=== PATIENT | female | born 1950 | race Two or more races ===

== ENCOUNTER 2021-11-02 12:29 | Inpatient (IN) | payer MEDICAID, OTHER ==
[~2021-11-02] VITALS: Ht 160 cm; Wt 62.1 kg
[2021-11-02 01:30] VITALS: BP 120/70
[2021-11-02 16:10] LABS: Hematocrit 26.1 % (36.0-46.0); Lymphocytes # (auto) 0.8 10 ^3/uL (0.4-5.4)
[2021-11-02 16:11] LABS: Basophils # (auto) 0.3 10 ^3/uL (0-0.2); Basophils % (auto) 2.1 % (0.0-2.0); Eosinophils # (auto) 0.2 10 ^3/uL (0-0.8); Eosinophils % (auto) 1.5 % (0.0-7.0); Hemoglobin 7.8 g/dL (12.2-16.2); Lymphocytes % (auto) 6.8 % (10.0-50.0); Mean Corpuscular Hemoglobin 24.2 pg (28.0-32.0); Mean Corpuscular Hgb Conc. 29.7 g/dL (32.0-36.0); Mean Corpuscular Volume 81.6 fL (80.0-100.0); Monocytes # (auto) 0.4 10 ^3/uL (0-1.3); Monocytes % (auto) 3.4 % (0.0-12.0); Neutrophils # (auto) 10.4 10 ^3/uL (1.6-8.6); Neutrophils % (auto) 86.2 % (37.0-80.0); Nucleated Red Blood Cells % 0.3 %
[2021-11-02 16:15] LABS: Red Cell Distribution Width 21.8 % (11.8-14.3)
[2021-11-02 16:24] LABS: Albumin 3.4 g/dL (3.4-5.0); Anion Gap 6 (5-15); BUN/Creatinine Ratio 12.2; Blood Urea Nitrogen 9 mg/dL (7-18); Calcium 8.3 mg/dL (8.5-10.1); Carbon Dioxide 21 mmol/L (21-32); Chloride 115 mmol/L (98-107); GFR African American 99 mL/min; GFR Non-African American 82 mL/min; Glucose 111 mg/dL (74-106); Potassium 4.2 mmol/L (3.5-5.1); Sodium 142 mmol/L (136-145)
[2021-11-02 16:27] LABS: Alanine Aminotransferase 21 U/L (13-56); Alkaline Phosphatase 95 U/L (45-117); Aspartate Aminotransferase 35 U/L (15-37); Bilirubin, Total 0.3 mg/dL (0.2-1.0); Total Protein 7.2 g/dL (6.4-8.2)
[2021-11-02] MEDS ORDERED: ONDANSETRON HCL 4 MG/2 ML VIAL IV ONE (16:30)
[2021-11-02] MEDS ORDERED: MORPHINE SULFATE INJECTION 2 MG/ML SYRG IV ONE (16:30)
[2021-11-02] MEDS ORDERED: LACTATED RINGER'S 1,000 ML IV ONE (19:00)
[2021-11-02] MEDS ORDERED: NITROGLYCERIN 0.4 MG SL TAB SL PRN (19:00)
[2021-11-02] MEDS ORDERED: MORPHINE SULFATE INJECTION 2 MG/ML SYRG IV PRN (19:00)
[2021-11-02] MEDS: MORPHINE SULFATE 4 MG/ML SYR/VIAL IV PRN (20:32)
[2021-11-02] MEDS: ONDANSETRON HCL 4 MG/2 ML VIAL IV PRN (20:33)
[2021-11-02] MEDS ORDERED: PANTOPRAZOLE 40 MG/10 ML VIAL INJ IV ONE (23:45)
[2021-11-02] MEDS ORDERED: metroNIDAZOLE 500MG/100ML 100 ML IV ONE (23:45)
[2021-11-02] MEDS ORDERED: SODIUM CHLORIDE 0.9% 1,000 ML IV SCH (23:45)
[2021-11-02] MEDS ORDERED: cefTRIAXone 1GM/50ML D5W 50 ML IV ONE (23:45)
[2021-11-03] VITALS (10 sets, daily range): BP systolic 120–159; BP diastolic 60–98
[2021-11-03] MEDS ORDERED: MORPHINE SULFATE INJECTION 2 MG/ML SYRG IV PRN ×2
[2021-11-03] MEDS ORDERED: LORazepam 0.5 MG TAB PO PRN
[2021-11-03] MEDS ORDERED: ALUM & MAG HYDROX-SIMETH LIQ(MAALOX) 30 ML PO PRN
[2021-11-03] MEDS ORDERED: DOCUSATE SOD 100 MG CAP PO PRN
[2021-11-03] MEDS ORDERED: NITROGLYCERIN 0.4 MG SL TAB SL PRN
[2021-11-03] MEDS: MORPHINE SULFATE 4 MG/ML SYR/VIAL IV PRN ×2 (01:00→11:27)
[2021-11-03] MEDS: D5W/SOD CHLO 0.9% 1,000 ML IV SCH (02:14)
[2021-11-03 04:24] LABS: % Iron Saturation 6.6 % (15-50)
[2021-11-03 04:56] LABS: Urine Bacteria FEW /hpf (None Seen); Urine Blood TRACE /uL (Negative); Urine Mucus FEW (None Seen); Urine Specific Gravity 1.019 (1.001-1.035); Urine WBC 103 /hpf (0 - 5)
[2021-11-03 04:57] LABS: Urine Hyaline Cast FEW /lpf (0 - 2)
[2021-11-03 05:04] LABS: Amphetamine Screen, Urine NEGATIVE (NEGATIVE); Barbiturate Scree,Urine NEGATIVE (NEGATIVE); Benzodiazephine Screen, Urine NEGATIVE (NEGATIVE); Cannabinoid Screen, Urine NEGATIVE (NEGATIVE); Opiate Scree,Urine POSITIVE (NEGATIVE)
[2021-11-03 05:12] LABS: Cocaine Screen, Urine NEGATIVE (NEGATIVE); Phencyclidine Screen, Urine NEGATIVE (NEGATIVE)
[2021-11-03] MEDS ORDERED: metroNIDAZOLE 500MG/100ML 100 ML IV SCH (06:00)
[2021-11-03 07:07] LABS: Basophils # (auto) 0.1 10 ^3/uL (0-0.2); Eosinophils # (auto) 0.3 10 ^3/uL (0-0.8); Monocytes # (auto) 0.7 10 ^3/uL (0-1.3); Monocytes % (auto) 6.6 % (0.0-12.0); Neutrophils # (auto) 7.9 10 ^3/uL (1.6-8.6); White Blood Cell 10.1 10^3/uL (4.4-10.8)
[2021-11-03 07:10] LABS: Basophils % (auto) 1.3 % (0.0-2.0); Eosinophils % (auto) 2.9 % (0.0-7.0); Hematocrit 23.7 % (36.0-46.0); Hemoglobin 7.4 g/dL (12.2-16.2); Lymphocytes # (auto) 1.2 10 ^3/uL (0.4-5.4); Lymphocytes % (auto) 11.6 % (10.0-50.0); Mean Corpuscular Hemoglobin 25.6 pg (28.0-32.0); Mean Corpuscular Hgb Conc. 31.4 g/dL (32.0-36.0); Mean Corpuscular Volume 81.7 fL (80.0-100.0); Neutrophils % (auto) 77.6 % (37.0-80.0); Nucleated Red Blood Cells % 0.1 %; Red Cell Distribution Width 20.9 % (11.8-14.3)
[2021-11-03 07:23] LABS: Albumin 3.2 g/dL (3.4-5.0); Magnesium 3.2 mg/dL (1.6-2.6); Potassium 3.2 mmol/L (3.5-5.1)
[2021-11-03 07:46] LABS: INR 1.04 (0.9-1.15); Partial Thromboplastin Time 27.6 sec (23.6-33.0)
[2021-11-03 08:11] LABS: BUN/Creatinine Ratio 11.4; Bilirubin, Total 0.2 mg/dL (0.2-1.0); Phosphorus 2.7 mg/dL (2.5-4.90); Uric Acid 2.5 mg/dL (2.6-6.0)
[2021-11-03] MEDS: cefTRIAXone 1GM/50ML D5W 50 ML IV SCH (08:19)
[2021-11-03] MEDS: HYDROcodone-ACET 5/325MG TAB PO PRN ×2 (08:19→20:35)
[2021-11-03] MEDS ORDERED: PANTOPRAZOLE 40 MG/10 ML VIAL INJ IV SCH (10:00)
[2021-11-03] MEDS: NICOTINE 21MG/24 HR TOPICAL PATCH TD SCH (12:10)
[2021-11-03] MEDS ORDERED: GASTROGRAFIN 120 ML SOL ONE (12:40)
[2021-11-03] MEDS ORDERED: LIDOCAINE VISCOUS 2% 15ML UD ONE (14:57)
[2021-11-03] MEDS ORDERED: MIDAZOLAM HCL 5 MG/ML-1ML VIAL ONE (14:57)
[2021-11-03] MEDS ORDERED: diphenhdrAMINE HCL 50 MG/1 ML VL ONE (14:58)
[2021-11-03] MEDS ORDERED: fentaNYL CITRATE 100 MCG/2 ML VL ONE (14:58)
[2021-11-03] MEDS ORDERED: ACET1CAP14 PO (15:01)
[2021-11-03] MEDS: SUCRALFATE 1 GM/10 ML ORAL SUSP PO SCH ×2 (17:00→21:43)
[2021-11-03] MEDS: MORPHINE SULFATE INJECTION 2 MG/ML SYRG IV PRN (18:23)
[2021-11-03] MEDS: DOCUSATE SOD 100 MG CAP PO SCH (21:43)
[2021-11-03] MEDS: PANTOPRAZOLE 40 MG/10 ML VIAL INJ IV SCH (21:43)
[2021-11-04] MEDS: D5W/SOD CHLO 0.9% 1,000 ML IV SCH
[2021-11-04 05:00] VITALS: BP 120/57
[2021-11-04] MEDS: SUCRALFATE 1 GM/10 ML ORAL SUSP PO SCH ×4 (07:00→21:52)
[2021-11-04 07:13] LABS: Calcium 8.1 mg/dL (8.5-10.1); Magnesium 2.9 mg/dL (1.6-2.6); Potassium 3.3 mmol/L (3.5-5.1)
[2021-11-04 07:16] LABS: Basophils # (auto) 0.1 10 ^3/uL (0-0.2); Eosinophils # (auto) 0.2 10 ^3/uL (0-0.8); Eosinophils % (auto) 1.5 % (0.0-7.0); Mean Corpuscular Hemoglobin 25.8 pg (28.0-32.0); Mean Corpuscular Hgb Conc. 31.4 g/dL (32.0-36.0)
[2021-11-04 07:19] LABS: BUN/Creatinine Ratio 9.3
[2021-11-04 07:27] LABS: Basophils % (auto) 0.5 % (0.0-2.0); Hematocrit 22.5 % (36.0-46.0); Hemoglobin 7.1 g/dL (12.2-16.2); Lymphocytes % (auto) 9.6 % (10.0-50.0); Mean Corpuscular Volume 82.1 fL (80.0-100.0); Monocytes # (auto) 0.7 10 ^3/uL (0-1.3); Monocytes % (auto) 6.4 % (0.0-12.0); Neutrophils # (auto) 8.7 10 ^3/uL (1.6-8.6); Red Blood Cells 2.75 10^6/uL (4.0-5.20); Red Cell Distribution Width 21.4 % (11.8-14.3); White Blood Cell 10.6 10^3/uL (4.4-10.8)
[2021-11-04 08:10] VITALS: BP 130/62
[2021-11-04] MEDS: PANTOPRAZOLE 40 MG/10 ML VIAL INJ IV SCH ×2 (09:48→21:52)
[2021-11-04] MEDS: NICOTINE 21MG/24 HR TOPICAL PATCH TD SCH (09:49)
[2021-11-04] MEDS: HYDROcodone-ACET 5/325MG TAB PO PRN (09:59)
[2021-11-04] MEDS: DOCUSATE SOD 100 MG CAP PO SCH ×2 (10:00→21:45)
[2021-11-04 11:14] VITALS: BP 122/59
[2021-11-04] MEDS: cefTRIAXone 1GM/50ML D5W 50 ML IV SCH (12:00)
[2021-11-04] MEDS ORDERED: GASTROGRAFIN 120 ML SOL ONE (12:43)
[2021-11-04] MEDS: MORPHINE SULFATE INJECTION 2 MG/ML SYRG IV PRN ×3 (14:19→22:04)
[2021-11-04] MEDS: SODIUM CHLORIDE 0.9% 1,000 ML IV SCH (15:30)
[2021-11-04] MEDS ORDERED: POTASSIUM CHL 20 Meq TABLET PO ONE (15:30)
[2021-11-04] MEDS: ONDANSETRON HCL 4 MG/2 ML VIAL IV PRN (16:44)
[2021-11-04 17:57] VITALS: BP 135/70
[2021-11-04 20:00] VITALS: BP 140/67
[2021-11-04] MEDS: ACETAMINOPHEN 325 MG TAB PO PRN (21:52)
[2021-11-05 04:58] VITALS: BP 114/59
[2021-11-05] MEDS: SUCRALFATE 1 GM/10 ML ORAL SUSP PO SCH ×4 (06:29→22:00)
[2021-11-05 06:51] LABS: Hematocrit 22.6 % (36.0-46.0)
[2021-11-05 07:27] LABS: Magnesium 2.2 mg/dL (1.6-2.6); Potassium 3.3 mmol/L (3.5-5.1)
[2021-11-05 09:00] VITALS: BP 129/69
[2021-11-05] MEDS: cefTRIAXone 1GM/50ML D5W 50 ML IV SCH (09:30)
[2021-11-05] MEDS: NICOTINE 21MG/24 HR TOPICAL PATCH TD SCH (09:31)
[2021-11-05] MEDS: PANTOPRAZOLE 40 MG/10 ML VIAL INJ IV SCH ×2 (09:31→22:50)
[2021-11-05] MEDS: DOCUSATE SOD 100 MG CAP PO SCH ×2 (09:31→22:50)
[2021-11-05] MEDS: MORPHINE SULFATE INJECTION 2 MG/ML SYRG IV PRN ×3 (09:50→22:49)
[2021-11-05 11:03] LABS: Hemoglobin 7.2 g/dL (12.2-16.2)
[2021-11-05 11:04] LABS: Hematocrit 23.6 % (36.0-46.0)
[2021-11-05] MEDS ORDERED: ERTAPENEM SOD INJ 1 GM in SODIUM CHL 0.9% 50 ML IV ONE (12:30)
[2021-11-05] MEDS ORDERED: POTASSIUM CHL 20 Meq TABLET PO ONE (12:45)
[2021-11-05 13:00] VITALS: BP 121/59
[2021-11-05 17:00] VITALS: BP 120/74
[2021-11-05 22:00] VITALS: BP 107/62
[2021-11-06] MEDS: MORPHINE SULFATE INJECTION 2 MG/ML SYRG IV PRN ×4 (04:23→18:42)
[2021-11-06 05:00] VITALS: BP 132/76
[2021-11-06] MEDS: SUCRALFATE 1 GM/10 ML ORAL SUSP PO SCH ×4 (07:00→22:00)
[2021-11-06 08:00] VITALS: BP 148/67
[2021-11-06 08:21] LABS: Basophils # (auto) 0.1 10 ^3/uL (0-0.2); Red Cell Distribution Width 21.7 % (11.8-14.3)
[2021-11-06 08:27] LABS: Basophils % (auto) 0.6 % (0.0-2.0); Eosinophils # (auto) 0.2 10 ^3/uL (0-0.8); Eosinophils % (auto) 1.7 % (0.0-7.0); Hematocrit 22.1 % (36.0-46.0); Lymphocytes # (auto) 0.8 10 ^3/uL (0.4-5.4); Lymphocytes % (auto) 8.7 % (10.0-50.0); Mean Corpuscular Hgb Conc. 30.7 g/dL (32.0-36.0); Mean Corpuscular Volume 81.4 fL (80.0-100.0); Monocytes # (auto) 0.5 10 ^3/uL (0-1.3); Monocytes % (auto) 5.1 % (0.0-12.0); Neutrophils # (auto) 7.8 10 ^3/uL (1.6-8.6); Neutrophils % (auto) 83.9 % (37.0-80.0); Potassium 3.4 mmol/L (3.5-5.1); Red Blood Cells 2.71 10^6/uL (4.0-5.20); White Blood Cell 9.3 10^3/uL (4.4-10.8)
[2021-11-06 08:36] LABS: BUN/Creatinine Ratio 12.8; Calcium 8.6 mg/dL (8.5-10.1); Magnesium 2.8 mg/dL (1.6-2.6)
[2021-11-06 08:38] LABS: Hemoglobin 6.8 g/dL (12.2-16.2)
[2021-11-06 09:00] VITALS: BP 148/67
[2021-11-06] MEDS: PANTOPRAZOLE 40 MG/10 ML VIAL INJ IV SCH ×2 (09:57→22:52)
[2021-11-06] MEDS: DOCUSATE SOD 100 MG CAP PO SCH ×2 (09:57→22:00)
[2021-11-06] MEDS: ERTAPENEM SOD INJ 1 GM in SODIUM CHL 0.9% 50 ML IV SCH (09:58)
[2021-11-06] MEDS: NICOTINE 21MG/24 HR TOPICAL PATCH TD SCH (09:58)
[2021-11-06] MEDS: SODIUM CHLORIDE 0.9% 1,000 ML IV SCH (10:09)
[2021-11-06] MEDS ORDERED: diphenhdrAMINE HCL 25 MG CAP PO PRN (10:15)
[2021-11-06] MEDS ORDERED: ACETAMINOPHEN 500 MG TAB PO ONE (10:15)
[2021-11-06] MEDS: HYDROcodone-ACET 5/325MG TAB PO PRN (11:58)
[2021-11-06 13:00] VITALS: BP 109/65
[2021-11-06 17:00] VITALS: BP 128/68
[2021-11-06 21:52] VITALS: BP 129/75
[2021-11-07] MEDS: SODIUM CHLORIDE 0.9% 1,000 ML IV SCH ×2 (04:42→23:58)
[2021-11-07 05:44] VITALS: BP 130/55
[2021-11-07] MEDS: SUCRALFATE 1 GM/10 ML ORAL SUSP PO SCH ×5 (06:21→22:06)
[2021-11-07 07:16] LABS: Basophils # (auto) 0.1 10 ^3/uL (0-0.2); Eosinophils # (auto) 0.2 10 ^3/uL (0-0.8); Nucleated Red Blood Cells % 0.1 %
[2021-11-07 07:18] LABS: Basophils % (auto) 1.2 % (0.0-2.0); Eosinophils % (auto) 2.6 % (0.0-7.0); Lymphocytes # (auto) 0.8 10 ^3/uL (0.4-5.4); Lymphocytes % (auto) 10.7 % (10.0-50.0); Mean Corpuscular Hemoglobin 25.3 pg (28.0-32.0); Mean Corpuscular Hgb Conc. 31.3 g/dL (32.0-36.0); Monocytes # (auto) 0.4 10 ^3/uL (0-1.3); Monocytes % (auto) 5.8 % (0.0-12.0); Neutrophils % (auto) 79.7 % (37.0-80.0); Red Blood Cells 2.72 10^6/uL (4.0-5.20); Red Cell Distribution Width 21.6 % (11.8-14.3); White Blood Cell 7.5 10^3/uL (4.4-10.8)
[2021-11-07 07:23] LABS: Hemoglobin 6.9 g/dL (12.2-16.2)
[2021-11-07 07:24] LABS: Potassium 3.7 mmol/L (3.5-5.1)
[2021-11-07 07:38] LABS: Albumin 2.7 g/dL (3.4-5.0); BUN/Creatinine Ratio 8.3; Bilirubin, Total 0.3 mg/dL (0.2-1.0); Calcium 8.4 mg/dL (8.5-10.1); Total Protein 6.2 g/dL (6.4-8.2)
[2021-11-07 08:00] VITALS: BP 121/76
[2021-11-07 09:13] VITALS: BP 121/76
[2021-11-07] MEDS: DOCUSATE SOD 100 MG CAP PO SCH ×2 (10:00→22:06)
[2021-11-07] MEDS: ERTAPENEM SOD INJ 1 GM in SODIUM CHL 0.9% 50 ML IV SCH (10:02)
[2021-11-07] MEDS: PANTOPRAZOLE 40 MG/10 ML VIAL INJ IV SCH ×2 (10:02→22:06)
[2021-11-07] MEDS: NICOTINE 21MG/24 HR TOPICAL PATCH TD SCH (10:03)
[2021-11-07] MEDS: MORPHINE SULFATE INJECTION 2 MG/ML SYRG IV PRN (10:48)
[2021-11-07 13:27] VITALS: BP 117/65
[2021-11-07 17:05] VITALS: BP 119/66
[2021-11-07] MEDS: FERROUS SULFATE 325mg EC TAB PO SCH (17:50)
[2021-11-07 22:00] VITALS: BP 135/74
[2021-11-08 05:00] VITALS: BP 118/70
[2021-11-08] MEDS: SUCRALFATE 1 GM/10 ML ORAL SUSP PO SCH ×4 (06:05→21:33)
[2021-11-08 07:50] LABS: Eosinophils # (auto) 0.2 10 ^3/uL (0-0.8); Lymphocytes # (auto) 0.9 10 ^3/uL (0.4-5.4); Monocytes # (auto) 0.5 10 ^3/uL (0-1.3); Monocytes % (auto) 7.2 % (0.0-12.0); Neutrophils % (auto) 75.7 % (37.0-80.0); Nucleated Red Blood Cells % 0.1 %
[2021-11-08 07:54] LABS: Basophils # (auto) 0 10 ^3/uL (0-0.2); Basophils % (auto) 0.7 % (0.0-2.0); Eosinophils % (auto) 3.5 % (0.0-7.0); Hematocrit 23.2 % (36.0-46.0); Hemoglobin 7.4 g/dL (12.2-16.2); Lymphocytes % (auto) 12.9 % (10.0-50.0); Mean Corpuscular Hemoglobin 25.6 pg (28.0-32.0); Mean Corpuscular Hgb Conc. 31.7 g/dL (32.0-36.0); Mean Corpuscular Volume 80.6 fL (80.0-100.0); Red Blood Cells 2.88 10^6/uL (4.0-5.20); White Blood Cell 6.7 10^3/uL (4.4-10.8)
[2021-11-08 07:57] LABS: Red Cell Distribution Width 21.5 % (11.8-14.3)
[2021-11-08 08:00] VITALS: BP 115/62
[2021-11-08 09:00] VITALS: BP 115/62
[2021-11-08] MEDS: FERROUS SULFATE 325mg EC TAB PO SCH ×2 (09:38→15:37)
[2021-11-08] MEDS: PANTOPRAZOLE 40 MG/10 ML VIAL INJ IV SCH ×2 (09:39→21:33)
[2021-11-08] MEDS: ERTAPENEM SOD INJ 1 GM in SODIUM CHL 0.9% 50 ML IV SCH (09:39)
[2021-11-08] MEDS: NICOTINE 21MG/24 HR TOPICAL PATCH TD SCH (09:40)
[2021-11-08] MEDS: DOCUSATE SOD 100 MG CAP PO SCH ×2 (10:00→21:33)
[2021-11-08 13:28] VITALS: BP 116/65
[2021-11-08 16:27] VITALS: BP 137/70
[2021-11-08] MEDS: ACETAMINOPHEN 325 MG TAB PO PRN (17:47)
[2021-11-08 22:00] VITALS: BP 120/66
[2021-11-09] MEDS: HYDROcodone-ACET 5/325MG TAB PO PRN ×3 (01:15→20:52)
[2021-11-09 05:00] VITALS: BP 105/61
[2021-11-09] MEDS: SUCRALFATE 1 GM/10 ML ORAL SUSP PO SCH ×4 (05:42→22:00)
[2021-11-09 06:45] LABS: Hemoglobin 7.2 g/dL (12.2-16.2)
[2021-11-09 06:48] LABS: Potassium 3.2 mmol/L (3.5-5.1)
[2021-11-09 07:52] VITALS: BP 119/69
[2021-11-09] MEDS: FERROUS SULFATE 325mg EC TAB PO SCH ×2 (08:23→15:50)
[2021-11-09] MEDS: PANTOPRAZOLE 40 MG/10 ML VIAL INJ IV SCH ×2 (08:24→22:00)
[2021-11-09] MEDS: ERTAPENEM SOD INJ 1 GM in SODIUM CHL 0.9% 50 ML IV SCH (08:24)
[2021-11-09] MEDS: DOCUSATE SOD 100 MG CAP PO SCH ×2 (08:24→22:00)
[2021-11-09] MEDS: NICOTINE 21MG/24 HR TOPICAL PATCH TD SCH (08:25)
[2021-11-09 12:24] VITALS: BP 107/76
[2021-11-09] MEDS ORDERED: POTASSIUM EFFERVESENT TAB 25 MEQ PO ONE (13:15)
[2021-11-09] MEDS ORDERED: IOHEXOL 350 MG/ML 100ML IJ ONE (13:20)
[2021-11-09 20:00] VITALS: BP 138/63
[2021-11-09 22:00] VITALS: BP_SYST 138; BP_SYST 149; BP_DIAS 62; BP_DIAS 63
[2021-11-10 05:00] VITALS: BP 104/66
[2021-11-10] MEDS: SUCRALFATE 1 GM/10 ML ORAL SUSP PO SCH ×4 (06:35→23:50)
[2021-11-10] MEDS: HYDROcodone-ACET 5/325MG TAB PO PRN ×3 (06:36→23:51)
[2021-11-10 07:23] LABS: Hematocrit 24.5 % (36.0-46.0); Hemoglobin 7.5 g/dL (12.2-16.2)
[2021-11-10 07:42] LABS: Potassium 3.6 mmol/L (3.5-5.1)
[2021-11-10 07:46] LABS: BUN/Creatinine Ratio 11.5
[2021-11-10 09:18] VITALS: BP 108/56
[2021-11-10] MEDS: DOCUSATE SOD 100 MG CAP PO SCH ×2 (09:26→23:50)
[2021-11-10] MEDS: ERTAPENEM SOD INJ 1 GM in SODIUM CHL 0.9% 50 ML IV SCH (09:27)
[2021-11-10] MEDS: FERROUS SULFATE 325mg EC TAB PO SCH ×2 (09:27→18:11)
[2021-11-10] MEDS: PANTOPRAZOLE 40 MG/10 ML VIAL INJ IV SCH ×2 (09:27→23:50)
[2021-11-10] MEDS: NICOTINE 21MG/24 HR TOPICAL PATCH TD SCH (09:28)
[2021-11-10] MEDS: ACETAMINOPHEN 325 MG TAB PO PRN (09:31)
[2021-11-10 12:30] VITALS: BP 112/69
[2021-11-10 17:30] VITALS: BP 104/56
[2021-11-10 20:00] VITALS: BP 138/74
[2021-11-10 22:00] VITALS: BP 138/74
[2021-11-11 05:00] VITALS: BP 120/69
[2021-11-11] MEDS: SUCRALFATE 1 GM/10 ML ORAL SUSP PO SCH ×4 (06:31→22:00)
[2021-11-11] MEDS: HYDROcodone-ACET 5/325MG TAB PO PRN ×3 (06:38→20:57)
[2021-11-11] MEDS: FERROUS SULFATE 325mg EC TAB PO SCH ×2 (08:09→18:46)
[2021-11-11] MEDS: PANTOPRAZOLE 40 MG/10 ML VIAL INJ IV SCH ×2 (10:06→22:00)
[2021-11-11] MEDS: DOCUSATE SOD 100 MG CAP PO SCH ×2 (10:09→22:00)
[2021-11-11] MEDS: NICOTINE 21MG/24 HR TOPICAL PATCH TD SCH (10:11)
[2021-11-11] MEDS: ERTAPENEM SOD INJ 1 GM in SODIUM CHL 0.9% 50 ML IV SCH (10:11)
[2021-11-11 22:00] VITALS: BP 138/71
[2021-11-12] MEDS: SUCRALFATE 1 GM/10 ML ORAL SUSP PO SCH ×4 (07:00→21:39)
[2021-11-12] MEDS: FERROUS SULFATE 325mg EC TAB PO SCH ×2 (08:18→16:53)
[2021-11-12 08:27] LABS: Hemoglobin 7.6 g/dL (12.2-16.2)
[2021-11-12 08:30] LABS: Potassium 3.8 mmol/L (3.5-5.1)
[2021-11-12 09:00] VITALS: BP 128/66
[2021-11-12] MEDS: DOCUSATE SOD 100 MG CAP PO SCH ×2 (09:29→21:39)
[2021-11-12] MEDS: PANTOPRAZOLE 40 MG/10 ML VIAL INJ IV SCH ×2 (09:29→21:39)
[2021-11-12] MEDS: NICOTINE 21MG/24 HR TOPICAL PATCH TD SCH (09:29)
[2021-11-12] MEDS: ERTAPENEM SOD INJ 1 GM in SODIUM CHL 0.9% 50 ML IV SCH (09:29)
[2021-11-12] MEDS: HYDROcodone-ACET 5/325MG TAB PO PRN ×2 (11:40→16:58)
[2021-11-12 13:00] VITALS: BP 128/65
[2021-11-12 16:52] VITALS: BP 153/63
[2021-11-12 22:00] VITALS: BP 124/65
[2021-11-13 05:00] VITALS: BP 126/66
[2021-11-13] MEDS: SUCRALFATE 1 GM/10 ML ORAL SUSP PO SCH ×4 (07:00→21:56)
[2021-11-13] MEDS: FERROUS SULFATE 325mg EC TAB PO SCH ×2 (08:54→18:13)
[2021-11-13] MEDS: DOCUSATE SOD 100 MG CAP PO SCH ×2 (08:55→21:55)
[2021-11-13] MEDS: ERTAPENEM SOD INJ 1 GM in SODIUM CHL 0.9% 50 ML IV SCH (08:56)
[2021-11-13] MEDS: NICOTINE 21MG/24 HR TOPICAL PATCH TD SCH (08:56)
[2021-11-13] MEDS: PANTOPRAZOLE 40 MG/10 ML VIAL INJ IV SCH ×2 (08:56→21:56)
[2021-11-13 09:00] VITALS: BP 117/61
[2021-11-13] MEDS: HYDROcodone-ACET 5/325MG TAB PO PRN ×3 (11:23→21:56)
[2021-11-13 17:00] VITALS: BP 131/66
[2021-11-13 22:00] VITALS: BP 115/61
[2021-11-14 05:00] VITALS: BP 139/70
[2021-11-14] MEDS: HYDROcodone-ACET 5/325MG TAB PO PRN ×2 (05:12→17:18)
[2021-11-14] MEDS: SUCRALFATE 1 GM/10 ML ORAL SUSP PO SCH ×3 (07:11→17:18)
[2021-11-14 09:00] VITALS: BP 117/61
[2021-11-14] MEDS: DOCUSATE SOD 100 MG CAP PO SCH (09:58)
[2021-11-14] MEDS: ERTAPENEM SOD INJ 1 GM in SODIUM CHL 0.9% 50 ML IV SCH (09:58)
[2021-11-14] MEDS: PANTOPRAZOLE 40 MG/10 ML VIAL INJ IV SCH (09:58)
[2021-11-14] MEDS: FERROUS SULFATE 325mg EC TAB PO SCH ×2 (09:59→17:18)
[2021-11-14] MEDS: NICOTINE 21MG/24 HR TOPICAL PATCH TD SCH (09:59)
[2021-11-14 13:00] VITALS: BP 144/65
[2021-11-14 17:00] VITALS: BP 117/68
== END 2021-11-14 22:15 | disposition home or self-care (01) | DRG 340 ==
LOC: ER 12:29 → TELE 18:52 → TELE-WESTW 23:34
PROVIDERS: ADMIT Hospitalist; ATTEND Internal Medicine
PROC: 0DB68ZX Excision of Stomach, Via Natural or Artificial Opening Endoscopic, Diagnostic (ICD-10-PCS; principal; 2021-11-03 15:04)
DX: S72.142A Displaced intertrochanteric fracture of left femur, initial encounter for closed fracture (principal); I21.4 Non-ST elevation (NSTEMI) myocardial infarction; D50.0 Iron deficiency anemia secondary to blood loss (chronic); I10 Essential (primary) hypertension; N39.0 Urinary tract infection, site not specified; E87.6 Hypokalemia; K25.9 Gastric ulcer, unspecified as acute or chronic, without hemorrhage or perforation; Z16.12 Extended spectrum beta lactamase (ESBL) resistance; K21.9 Gastro-esophageal reflux disease without esophagitis; K29.70 Gastritis, unspecified, without bleeding; Z96.649 Presence of unspecified artificial hip joint; B96.20 Unspecified Escherichia coli [E. coli] as the cause of diseases classified elsewhere; Z72.0 Tobacco use; K91.89 Other postprocedural complications and disorders of digestive system; Z20.822 Contact with and (suspected) exposure to COVID-19
CPT/HCPCS: 36415; 43239; 71275; 73502; 73700; 74176; 74250; 80048; 80053; 80061; 80307; 81001; 82270; 82306; 83036; 83540; 83550; 83735; 83880; 84100; 84132; 84443; 84484; 84550; 85014; 85018; 85025; 85379; 85610; 85730; 86850; 86870; 86880; 86900; 86901; 86905; 86906; 86922; 86971; 87040; 87081; 87086; 87088; 87186; 87426; 93005; 93306; 93970; 96361; 96374; 97110; 97116; 97530; C9113; G0378; J0696; J1335; J2250; J2405; J7042

== ENCOUNTER 2022-10-25 17:39 | Inpatient (IN) | payer MEDICAID, OTHER ==
[~2022-10-25] VITALS: Ht 152.4 cm; Wt 58.1 kg
[~2022-10-25 17:39] MED LIST: ACET1CAP14 PO
[2022-10-25] MEDS ORDERED: ALBUTEROL SULF 2.5 MG/0.5ML(0.5%) NEB SOLN HHN ONE (18:15)
[2022-10-25] MEDS ORDERED: IPRATROPIUM BROM 0.5 MG/2.5ML INH SOL HHN ONE (18:15)
[2022-10-25] MEDS ORDERED: methylPREDNISolone SOD SUCC 125 MG/2 ML VL IV ONE (18:15)
[2022-10-25 19:39] LABS: Basophils # (auto) 0.1 10 ^3/uL (0-0.2); Basophils % (auto) 0.8 % (0.0-2.0); Eosinophils # (auto) 0.1 10 ^3/uL (0-0.8); Eosinophils % (auto) 1.6 % (0.0-7.0); Hematocrit 32.7 % (36.0-46.0); Hemoglobin 10.1 g/dL (12.2-16.2); Lymphocytes # (auto) 0.7 10 ^3/uL (0.4-5.4); Lymphocytes % (auto) 10.2 % (10.0-50.0); Mean Corpuscular Hemoglobin 28.7 pg (28.0-32.0); Mean Corpuscular Volume 92.6 fL (80.0-100.0); Monocytes # (auto) 0.5 10 ^3/uL (0-1.3); Monocytes % (auto) 6.8 % (0.0-12.0); Neutrophils # (auto) 5.5 10 ^3/uL (1.6-8.6); Neutrophils % (auto) 80.6 % (37.0-80.0); Nucleated Red Blood Cells % 0.4 %; Red Blood Cells 3.53 10^6/uL (4.0-5.20); White Blood Cell 6.8 10^3/uL (4.4-10.8)
[2022-10-25 19:46] LABS: Red Cell Distribution Width 20.4 % (11.8-14.3)
[2022-10-25 19:50] LABS: Urine Specific Gravity 1.008 (1.001-1.035)
[2022-10-25 19:51] LABS: Urine Blood Negative /uL (Negative)
[2022-10-25 19:59] LABS: Albumin 3.5 g/dL (3.4-5.0); BUN/Creatinine Ratio 16.4; Magnesium 2.5 mg/dL (1.6-2.6); Potassium 3.8 mmol/L (3.5-5.1)
[2022-10-25 20:01] LABS: Bilirubin, Total 0.2 mg/dL (0.2-1.0); Total Protein 7.3 g/dL (6.4-8.2)
[2022-10-25] MEDS ORDERED: IOHEXOL 350 MG/ML 100ML IJ ONE (22:29)
[2022-10-26] MEDS ORDERED: HYDROmorphone HCL 2 MG/ML VL/or syr IV ONE (01:30)
[2022-10-26] MEDS ORDERED: TEMAZEPAM 15 MG CAP PO PRN (02:15)
[2022-10-26] MEDS ORDERED: IPRATROPIUM BROM 0.5 MG/2.5ML INH SOL NEB PRN (02:15)
[2022-10-26] MEDS ORDERED: ALBUTEROL SULF 2.5 MG/0.5ML(0.5%) NEB SOLN NEB PRN (02:15)
[2022-10-26] MEDS ORDERED: NICOTINE 14 MG/24HR TOPICAL PATCH TD ONE (03:00)
[2022-10-26] MEDS: ACETAMINOPHEN 325 MG TAB PO PRN (03:09)
[2022-10-26 03:10] VITALS: BP 154/67
[2022-10-26] MEDS: ENOXAPARIN SOD 40 MG/0.4 ML SYRINGE SC SCH (09:58)
[2022-10-26] MEDS ORDERED: PANTOPRAZOLE 40 MG TAB PO SCH (10:00)
[2022-10-26] MEDS: PANTOPRAZOLE 40 MG TAB PO SCH (10:07)
[2022-10-26] MEDS ORDERED: GADOTERATE MEG 10 MMOL/20ml INJ (0.5MMOL/ml) IV ONE (10:23)
[2022-10-26 11:07] LABS: INR 1.01 (0.9-1.15); Partial Thromboplastin Time 27.7 sec (24.6-33.4)
[2022-10-26] MEDS ORDERED: SODIUM CHLORIDE 0.9% 1,000 ML IV SCH (13:15)
[2022-10-26] MEDS: SODIUM CHLORIDE 0.9% 1,000 ML IV SCH (16:01)
[2022-10-26] MEDS ORDERED: IPRATROPIUM BROM 0.5 MG/2.5ML INH SOL NEB ONE (16:15)
[2022-10-26] MEDS: guaiFENesin-DM 100/10mg/5ml SYR PO PRN (16:15)
[2022-10-26] MEDS ORDERED: ALBUTEROL SULF 2.5 MG/0.5ML(0.5%) NEB SOLN NEB ONE (16:15)
[2022-10-26] MEDS: ALBUTEROL SULF 2.5 MG/0.5ML(0.5%) NEB SOLN NEB SCH (18:38)
[2022-10-26] MEDS: IPRATROPIUM BROM 0.5 MG/2.5ML INH SOL NEB SCH (18:39)
[2022-10-26] MEDS: BUDESONIDE (INHALATION) 0.5 MG/2 ML NEB NEB SCH (18:39)
[2022-10-26] MEDS: methylPREDNISolone SOD SUCC 40 MG/ML VL IV SCH (20:40)
[2022-10-26 23:00] VITALS: BP 131/76
[2022-10-26 23:01] VITALS: BP 131/70
[2022-10-27] VITALS (15 sets, daily range): BP systolic 113–166; BP diastolic 61–87
[2022-10-27] MEDS: guaiFENesin-DM 100/10mg/5ml SYR PO PRN ×2 (00:25→20:58)
[2022-10-27] MEDS: IPRATROPIUM BROM 0.5 MG/2.5ML INH SOL NEB SCH ×4 (01:03→19:52)
[2022-10-27] MEDS: ALBUTEROL SULF 2.5 MG/0.5ML(0.5%) NEB SOLN NEB SCH ×4 (01:03→19:52)
[2022-10-27] MEDS: SODIUM CHLORIDE 0.9% 1,000 ML IV SCH (05:20)
[2022-10-27 06:13] LABS: Basophils # (auto) 0 10 ^3/uL (0-0.2); Eosinophils # (auto) 0 10 ^3/uL (0-0.8); Hemoglobin 9.4 g/dL (12.2-16.2); Lymphocytes # (auto) 0.8 10 ^3/uL (0.4-5.4); Monocytes # (auto) 0.5 10 ^3/uL (0-1.3); Neutrophils # (auto) 10.7 10 ^3/uL (1.6-8.6)
[2022-10-27 06:15] LABS: Basophils % (auto) 0.2 % (0.0-2.0); Hematocrit 31.2 % (36.0-46.0); Lymphocytes % (auto) 6.6 % (10.0-50.0); Mean Corpuscular Hemoglobin 28.6 pg (28.0-32.0); Mean Corpuscular Hgb Conc. 30.3 g/dL (32.0-36.0); Mean Corpuscular Volume 94.4 fL (80.0-100.0); Neutrophils % (auto) 89.2 % (37.0-80.0); Nucleated Red Blood Cells % 0.4 %; White Blood Cell 11.9 10^3/uL (4.4-10.8)
[2022-10-27 06:38] LABS: Albumin 3.5 g/dL (3.4-5.0); BUN/Creatinine Ratio 21.4; Calcium 9.5 mg/dL (8.5-10.1); Potassium 4.5 mmol/L (3.5-5.1)
[2022-10-27 06:39] LABS: Red Cell Distribution Width 20.6 % (11.8-14.3)
[2022-10-27 06:42] LABS: Bilirubin, Total 0.3 mg/dL (0.2-1.0); Total Protein 7.7 g/dL (6.4-8.2)
[2022-10-27] MEDS: BUDESONIDE (INHALATION) 0.5 MG/2 ML NEB NEB SCH ×2 (07:43→19:52)
[2022-10-27] MEDS: ENOXAPARIN SOD 40 MG/0.4 ML SYRINGE SC SCH (10:00)
[2022-10-27] MEDS: PANTOPRAZOLE 40 MG TAB PO SCH (10:00)
[2022-10-27] MEDS: methylPREDNISolone SOD SUCC 40 MG/ML VL IV SCH ×2 (10:32→21:05)
[2022-10-27] MEDS: NICOTINE 21MG/24 HR TOPICAL PATCH TD SCH (10:33)
[2022-10-27] MEDS ORDERED: fentaNYL CITRATE 100 MCG/2 ML VL IV ONE (11:15)
[2022-10-27] MEDS ORDERED: MIDAZOLAM HCL 2MG/2ML 2ml VIAL (1mg/ml) IV ONE (11:15)
[2022-10-27] MEDS: ONDANSETRON HCL 4 MG/2 ML VIAL IV PRN (21:04)
[2022-10-27] MEDS: ACETAMINOPHEN 325 MG TAB PO PRN (21:43)
[2022-10-28] MEDS: ALBUTEROL SULF 2.5 MG/0.5ML(0.5%) NEB SOLN NEB SCH ×4 (00:51→17:58)
[2022-10-28] MEDS: IPRATROPIUM BROM 0.5 MG/2.5ML INH SOL NEB SCH ×4 (00:51→17:58)
[2022-10-28 05:00] VITALS: BP 154/84
[2022-10-28] MEDS: BUDESONIDE (INHALATION) 0.5 MG/2 ML NEB NEB SCH ×2 (06:55→17:59)
[2022-10-28 09:00] VITALS: BP 151/66
[2022-10-28] MEDS ORDERED: MORPHINE SULFATE INJ 2 MG/ml SYRG IV PRN (09:30)
[2022-10-28] MEDS: methylPREDNISolone SOD SUCC 40 MG/ML VL IV SCH ×2 (11:11→22:46)
[2022-10-28] MEDS: NICOTINE 21MG/24 HR TOPICAL PATCH TD SCH (11:11)
[2022-10-28 12:16] LABS: Basophils # (auto) 0 10 ^3/uL (0-0.2); Basophils % (auto) 0.2 % (0.0-2.0); Eosinophils # (auto) 0 10 ^3/uL (0-0.8); Hematocrit 29.8 % (36.0-46.0); Hemoglobin 9.3 g/dL (12.2-16.2); Lymphocytes # (auto) 0.9 10 ^3/uL (0.4-5.4); Lymphocytes % (auto) 9.3 % (10.0-50.0); Mean Corpuscular Hemoglobin 28.7 pg (28.0-32.0); Mean Corpuscular Volume 92.7 fL (80.0-100.0); Monocytes # (auto) 0.8 10 ^3/uL (0-1.3); Monocytes % (auto) 7.6 % (0.0-12.0); Neutrophils # (auto) 8.2 10 ^3/uL (1.6-8.6); Neutrophils % (auto) 82.9 % (37.0-80.0); Nucleated Red Blood Cells % 0.1 %; Red Blood Cells 3.22 10^6/uL (4.0-5.20); Red Cell Distribution Width 20.6 % (11.8-14.3); White Blood Cell 9.9 10^3/uL (4.4-10.8)
[2022-10-28 15:03] VITALS: BP 150/76
[2022-10-28 17:00] VITALS: BP 148/75
[2022-10-28] MEDS: HYDROcodone-ACET 5/325MG TAB PO PRN ×2 (17:12→22:48)
[2022-10-28 19:09] VITALS: BP 148/75
[2022-10-28 21:04] LABS: Free T4 (Free Thyroxine) 1.03 ng/dL (0.89-1.76)
[2022-10-28 21:05] LABS: Folate (Folic Acid) 12.48 ng/mL (5.38-24)
[2022-10-28 22:00] VITALS: BP 139/72
[2022-10-28] MEDS: MELATONIN 5 MG TAB PO SCH (22:47)
[2022-10-29] MEDS: IPRATROPIUM BROM 0.5 MG/2.5ML INH SOL NEB SCH ×5 (00:08→17:26)
[2022-10-29] MEDS: ALBUTEROL SULF 2.5 MG/0.5ML(0.5%) NEB SOLN NEB SCH ×5 (00:08→17:26)
[2022-10-29 05:00] VITALS: BP 137/65
[2022-10-29] MEDS: HYDROcodone-ACET 5/325MG TAB PO PRN ×2 (05:33→23:15)
[2022-10-29 05:44] LABS: Basophils # (auto) 0 10 ^3/uL (0-0.2); Eosinophils # (auto) 0 10 ^3/uL (0-0.8); Monocytes # (auto) 0.2 10 ^3/uL (0-1.3); Nucleated Red Blood Cells % 0.1 %
[2022-10-29 05:46] LABS: Hemoglobin 9.7 g/dL (12.2-16.2); Lymphocytes # (auto) 0.4 10 ^3/uL (0.4-5.4); Lymphocytes % (auto) 3.3 % (10.0-50.0); Mean Corpuscular Hemoglobin 27.7 pg (28.0-32.0); Mean Corpuscular Hgb Conc. 30.2 g/dL (32.0-36.0); Mean Corpuscular Volume 91.6 fL (80.0-100.0); Monocytes % (auto) 1.7 % (0.0-12.0); Neutrophils # (auto) 10.8 10 ^3/uL (1.6-8.6); Red Blood Cells 3.49 10^6/uL (4.0-5.20); Red Cell Distribution Width 19.7 % (11.8-14.3); White Blood Cell 11.4 10^3/uL (4.4-10.8)
[2022-10-29 05:50] LABS: Albumin 3.5 g/dL (3.4-5.0); Calcium 9.2 mg/dL (8.5-10.1); Potassium 4.2 mmol/L (3.5-5.1)
[2022-10-29 05:54] LABS: BUN/Creatinine Ratio 25.8; Bilirubin, Total 0.6 mg/dL (0.2-1.0); Total Protein 7.5 g/dL (6.4-8.2)
[2022-10-29] MEDS: cefTRIAXone 1GM/50ML D5W 50 ML IV SCH (08:50)
[2022-10-29 08:52] VITALS: BP 107/71
[2022-10-29] MEDS: methylPREDNISolone SOD SUCC 40 MG/ML VL IV SCH ×2 (08:59→22:00)
[2022-10-29] MEDS: PANTOPRAZOLE 40 MG TAB PO SCH (08:59)
[2022-10-29] MEDS: ASPirin 81 mg TAB PO SCH (08:59)
[2022-10-29] MEDS: BUDESONIDE (INHALATION) 0.5 MG/2 ML NEB NEB SCH (12:04)
[2022-10-29 13:00] VITALS: BP 146/56
[2022-10-29] MEDS: NICOTINE 21MG/24 HR TOPICAL PATCH TD SCH (15:12)
[2022-10-29] MEDS: AZITHROMYCIN 250 MG TAB PO SCH (15:12)
[2022-10-29] MEDS: ACETAMINOPHEN 325 MG TAB PO PRN (15:32)
[2022-10-29 16:39] VITALS: BP 165/84
[2022-10-29] MEDS ORDERED: hydrALAZINE HCL 20 MG/ML VL IV PRN (16:45)
[2022-10-29 22:00] VITALS: BP 121/63
[2022-10-29] MEDS: MELATONIN 5 MG TAB PO SCH (22:00)
[2022-10-30] MEDS: ALBUTEROL SULF 2.5 MG/0.5ML(0.5%) NEB SOLN NEB SCH ×4 (00:04→19:30)
[2022-10-30] MEDS: BUDESONIDE (INHALATION) 0.5 MG/2 ML NEB NEB SCH ×3 (00:04→19:30)
[2022-10-30] MEDS: IPRATROPIUM BROM 0.5 MG/2.5ML INH SOL NEB SCH ×4 (00:04→19:30)
[2022-10-30 05:00] VITALS: BP 113/59
[2022-10-30 05:37] LABS: Hemoglobin 9.7 g/dL (12.2-16.2); White Blood Cell 11.1 10^3/uL (4.4-10.8)
[2022-10-30 05:43] LABS: Mean Corpuscular Hemoglobin 27.6 pg (28.0-32.0); Mean Corpuscular Hgb Conc. 30.3 g/dL (32.0-36.0); Mean Corpuscular Volume 91.2 fL (80.0-100.0); Red Blood Cells 3.51 10^6/uL (4.0-5.20); Red Cell Distribution Width 19.7 % (11.8-14.3)
[2022-10-30 05:59] LABS: Basophils % (manual) 0 (0.0-2.0); Blast Cells 0; Eosinophils % (manual) 0 (0-7); Metamyelocytes % 0; Monocytes % (manual) 0 (0-12); Myelocytes % 0; Promyelocytes % 0; Reactive Lymphocytes 0
[2022-10-30 06:05] LABS: BUN/Creatinine Ratio 26.8; Calcium 9.2 mg/dL (8.5-10.1); Potassium 4.6 mmol/L (3.5-5.1)
[2022-10-30 08:06] LABS: Immunoglobulin G, Serum 1211 mg/dL (586-1602)
[2022-10-30 08:32] VITALS: BP 138/69
[2022-10-30] MEDS: methylPREDNISolone SOD SUCC 40 MG/ML VL IV SCH ×2 (10:06→21:36)
[2022-10-30] MEDS: PANTOPRAZOLE 40 MG TAB PO SCH (10:06)
[2022-10-30] MEDS: cefTRIAXone 1GM/50ML D5W 50 ML IV SCH (10:06)
[2022-10-30] MEDS: ASPirin 81 mg TAB PO SCH (10:06)
[2022-10-30] MEDS: NICOTINE 21MG/24 HR TOPICAL PATCH TD SCH (10:07)
[2022-10-30] MEDS: AZITHROMYCIN 250 MG TAB PO SCH (10:07)
[2022-10-30 10:37] LABS: Band Neutrophils % (manual) 12; Lymphocytes % (manual) 2 (10.0-50.0)
[2022-10-30 12:56] VITALS: BP 133/70
[2022-10-30] MEDS: ONDANSETRON HCL 4 MG/2 ML VIAL IV PRN (13:38)
[2022-10-30 17:02] VITALS: BP 134/67
[2022-10-30] MEDS ORDERED: SUCRALFATE 1 GM/10 ML ORAL SUSP PO ONE (18:15)
[2022-10-30 20:00] VITALS: BP 135/64
[2022-10-30] MEDS: ACETAMINOPHEN 325 MG TAB PO PRN (20:49)
[2022-10-30] MEDS: MELATONIN 5 MG TAB PO SCH (21:36)
[2022-10-30 22:00] VITALS: BP 135/64
[2022-10-30] MEDS ORDERED: HYDROcodone-ACET 5/325MG TAB PO ONE (22:15)
[2022-10-31] VITALS (9 sets, daily range): BP systolic 117–149; BP diastolic 66–94
[2022-10-31] MEDS: IPRATROPIUM BROM 0.5 MG/2.5ML INH SOL NEB SCH ×5 (00:18→23:49)
[2022-10-31] MEDS: ALBUTEROL SULF 2.5 MG/0.5ML(0.5%) NEB SOLN NEB SCH ×5 (00:18→23:49)
[2022-10-31] MEDS: SUCRALFATE 1 GM/10 ML ORAL SUSP PO SCH ×2 (06:19→17:00)
[2022-10-31] MEDS: methylPREDNISolone SOD SUCC 40 MG/ML VL IV SCH ×2 (09:23→21:39)
[2022-10-31] MEDS: cefTRIAXone 1GM/50ML D5W 50 ML IV SCH (09:23)
[2022-10-31] MEDS: ASPirin 81 mg TAB PO SCH (09:23)
[2022-10-31] MEDS: AZITHROMYCIN 250 MG TAB PO SCH (09:23)
[2022-10-31] MEDS: PANTOPRAZOLE 40 MG TAB PO SCH (09:23)
[2022-10-31] MEDS: NICOTINE 14 MG/24HR TOPICAL PATCH TD SCH (09:24)
[2022-10-31] MEDS ORDERED: PRED20TA2 PO (11:06)
[2022-10-31] MEDS ORDERED: ALBUAER3 IN (11:06)
[2022-10-31] MEDS ORDERED: BUDE1AER4 IN (11:06)
[2022-10-31] MEDS ORDERED: LIDOCAINE VISCOUS 2% 15ML UD MT ONE (13:00)
[2022-10-31] MEDS ORDERED: MIDAZOLAM HCL 2MG/2ML 2ml VIAL (1mg/ml) IV ONE (13:00)
[2022-10-31] MEDS ORDERED: ONDANSETRON HCL 4 MG/2 ML VIAL IV ONE (13:00)
[2022-10-31] MEDS ORDERED: fentaNYL CITRATE 100 MCG/2 ML VL IV ONE (13:00)
[2022-10-31] MEDS: BUDESONIDE (INHALATION) 0.5 MG/2 ML NEB NEB SCH ×2 (13:50→19:11)
[2022-10-31] MEDS ORDERED: APIX5TAB PO (15:21)
[2022-10-31] MEDS: ACETAMINOPHEN 325 MG TAB PO PRN (20:28)
[2022-10-31] MEDS ORDERED: HYDROcodone-ACET 5/325MG TAB PO ONE (21:00)
[2022-10-31] MEDS: MELATONIN 5 MG TAB PO SCH (21:38)
[2022-11-01] VITALS (7 sets, daily range): BP systolic 125–161; BP diastolic 65–96
[2022-11-01] MEDS: SUCRALFATE 1 GM/10 ML ORAL SUSP PO SCH ×2 (05:35→17:31)
[2022-11-01] MEDS: ACETAMINOPHEN 325 MG TAB PO PRN (05:35)
[2022-11-01] MEDS: IPRATROPIUM BROM 0.5 MG/2.5ML INH SOL NEB SCH ×3 (06:00→19:58)
[2022-11-01] MEDS: BUDESONIDE (INHALATION) 0.5 MG/2 ML NEB NEB SCH ×2 (06:00→20:13)
[2022-11-01] MEDS: ALBUTEROL SULF 2.5 MG/0.5ML(0.5%) NEB SOLN NEB SCH ×3 (06:00→19:57)
[2022-11-01] MEDS ORDERED: MORPHINE SULFATE INJ 2 MG/ml SYRG IV ONE (08:30)
[2022-11-01] MEDS: PANTOPRAZOLE 40 MG TAB PO SCH (08:48)
[2022-11-01] MEDS: cefTRIAXone 1GM/50ML D5W 50 ML IV SCH (08:48)
[2022-11-01] MEDS: methylPREDNISolone SOD SUCC 40 MG/ML VL IV SCH ×2 (08:48→21:22)
[2022-11-01] MEDS: ASPirin 81 mg TAB PO SCH ×2 (08:48→16:02)
[2022-11-01] MEDS: NICOTINE 14 MG/24HR TOPICAL PATCH TD SCH (08:49)
[2022-11-01] MEDS: AZITHROMYCIN 250 MG TAB PO SCH (08:49)
[2022-11-01] MEDS: ALUM & MAG HYDROX-SIMETH LIQ(MAALOX) 30 ML PO PRN (11:50)
[2022-11-01] MEDS ORDERED: MORPHINE SULFATE INJ 2 MG/ml SYRG IV PRN (12:00)
[2022-11-01] MEDS ORDERED: ONDANSETRON HCL 4 MG/2 ML VIAL IV PRN (12:00)
[2022-11-01] MEDS ORDERED: ACETAMINOPHEN 500 MG TAB PO PRN (12:00)
[2022-11-01] MEDS: HYDROcodone-ACET 5/325MG TAB PO PRN ×2 (12:43→20:44)
[2022-11-01] MEDS: DOCUSATE SOD 100 MG CAP PO PRN (12:44)
[2022-11-01] MEDS: MELATONIN 5 MG TAB PO SCH (21:22)
[2022-11-02] VITALS (7 sets, daily range): BP systolic 124–156; BP diastolic 66–83
[2022-11-02] MEDS: ALBUTEROL SULF 2.5 MG/0.5ML(0.5%) NEB SOLN NEB SCH ×4 (00:36→18:27)
[2022-11-02] MEDS: IPRATROPIUM BROM 0.5 MG/2.5ML INH SOL NEB SCH ×4 (00:36→18:27)
[2022-11-02 06:00] LABS: INR 1.04 (0.9-1.15); Partial Thromboplastin Time 27.6 sec (24.6-33.4)
[2022-11-02] MEDS: BUDESONIDE (INHALATION) 0.5 MG/2 ML NEB NEB SCH ×2 (06:08→18:27)
[2022-11-02] MEDS: SUCRALFATE 1 GM/10 ML ORAL SUSP PO SCH ×2 (06:21→17:20)
[2022-11-02] MEDS: methylPREDNISolone SOD SUCC 40 MG/ML VL IV SCH ×2 (09:39→22:13)
[2022-11-02] MEDS: ALUM & MAG HYDROX-SIMETH LIQ(MAALOX) 30 ML PO PRN (09:39)
[2022-11-02] MEDS: DOCUSATE SOD 100 MG CAP PO PRN (09:41)
[2022-11-02] MEDS: NICOTINE 14 MG/24HR TOPICAL PATCH TD SCH (09:41)
[2022-11-02] MEDS: PANTOPRAZOLE 40 MG TAB PO SCH (09:41)
[2022-11-02] MEDS: AZITHROMYCIN 250 MG TAB PO SCH (09:41)
[2022-11-02] MEDS: HYDROcodone-ACET 5/325MG TAB PO PRN ×2 (09:42→11:24)
[2022-11-02] MEDS: cefTRIAXone 1GM/50ML D5W 50 ML IV SCH (09:44)
[2022-11-02] MEDS ORDERED: DEXA6TAB6 PO (13:26)
[2022-11-02] MEDS ORDERED: HYDR-4902 PO (13:26)
[2022-11-02] MEDS: LACTULOSE 20Gm/30ML SOLN PO SCH ×3 (15:02→22:12)
[2022-11-02] MEDS ORDERED: APIXABAN 5 MG TAB PO SCH (22:00)
[2022-11-02] MEDS: ENOXAPARIN SOD 150 MG/1 ML SYRINGE SC SCH (22:13)
[2022-11-02] MEDS: MELATONIN 5 MG TAB PO SCH (22:13)
[2022-11-03] MEDS: IPRATROPIUM BROM 0.5 MG/2.5ML INH SOL NEB SCH ×2 (00:06→06:20)
[2022-11-03] MEDS: ALBUTEROL SULF 2.5 MG/0.5ML(0.5%) NEB SOLN NEB SCH ×2 (00:06→06:19)
[2022-11-03] MEDS: LACTULOSE 20Gm/30ML SOLN PO SCH ×4 (02:00→09:43)
[2022-11-03 05:00] VITALS: BP 117/75
[2022-11-03] MEDS: SUCRALFATE 1 GM/10 ML ORAL SUSP PO SCH (06:06)
[2022-11-03] MEDS: BUDESONIDE (INHALATION) 0.5 MG/2 ML NEB NEB SCH (06:19)
[2022-11-03] MEDS: cefTRIAXone 1GM/50ML D5W 50 ML IV SCH (08:52)
[2022-11-03] MEDS: methylPREDNISolone SOD SUCC 40 MG/ML VL IV SCH (09:41)
[2022-11-03] MEDS: NICOTINE 14 MG/24HR TOPICAL PATCH TD SCH (09:42)
[2022-11-03] MEDS: PANTOPRAZOLE 40 MG TAB PO SCH (09:42)
[2022-11-03] MEDS: ENOXAPARIN SOD 150 MG/1 ML SYRINGE SC SCH (09:42)
[2022-11-03] MEDS: AZITHROMYCIN 250 MG TAB PO SCH (09:42)
[2022-11-03] MEDS ORDERED: APIXABAN 5 MG TAB PO SCH (22:00)
== END 2022-11-03 13:37 | disposition home or self-care (01) | DRG 720 ==
LOC: ER 17:39 → EDBD 17:39 → OVERFLOW 10-26 02:14 → CENTRAL 10-26 21:53 → TELE-CENTR 10-27 23:25
PROVIDERS: ADMIT Nurse Practitioner; ATTEND Nurse Practitioner Acute Care
PROC: 0W993ZZ Drainage of Right Pleural Cavity, Percutaneous Approach (ICD-10-PCS; 2022-10-27)
PROC: 0WBC3ZX Excision of Mediastinum, Percutaneous Approach, Diagnostic (ICD-10-PCS; 2022-10-27)
PROC: B246ZZ4 Ultrasonography of Right and Left Heart, Transesophageal (ICD-10-PCS; principal; 2022-10-31)
DX: A41.9 Sepsis, unspecified organism (principal); J96.01 Acute respiratory failure with hypoxia; I63.9 Cerebral infarction, unspecified; J90 Pleural effusion, not elsewhere classified; J44.1 Chronic obstructive pulmonary disease with (acute) exacerbation; C34.90 Malignant neoplasm of unspecified part of unspecified bronchus or lung; C78.7 Secondary malignant neoplasm of liver and intrahepatic bile duct; D64.9 Anemia, unspecified; E66.9 Obesity, unspecified; F17.200 Nicotine dependence, unspecified, uncomplicated; Z20.822 Contact with and (suspected) exposure to COVID-19; F17.210 Nicotine dependence, cigarettes, uncomplicated; K27.9 Peptic ulcer, site unspecified, unspecified as acute or chronic, without hemorrhage or perforation; K59.00 Constipation, unspecified; Z79.82 Long term (current) use of aspirin; Z79.899 Other long term (current) drug therapy; Z80.3 Family history of malignant neoplasm of breast; Z68.26 Body mass index [BMI] 26.0-26.9, adult
CPT/HCPCS: 10005; 36415; 36600; 70553; 71045; 71250; 71275; 73502; 74018; 74176; 74177; 76604; 76942; 77012; 78306; 80048; 80053; 81003; 82607; 82746; 82784; 82805; 83036; 83605; 83735; 83880; 83986; 84439; 84443; 84484; 85007; 85025; 85027; 85379; 85610; 85730; 86301; 86334; 87040; 87070; 87205; 87426; 87804; 89051; 93005; 93306; 93312; 93886; 94640; 94644; 96374; 99152; C1729; G0378; J0696; J2250; J2405